=== PATIENT | female | born 1980 | race Caucasian/White ===

== ENCOUNTER → 2021-10-01 | Day surgery (SDC) | payer BC ==
[~2021-10-01] MED LIST: ARAVA10 MG PO; ARMOUR THYROID90 MG PO; DILTIAZEM ER240 M2 PO; ELIQUIS 5 MG TAB5 MG PO; HYDROCHLOROTH12.5 MG PO; PLAQUENIL200 MG PO; ZESTRIL5 MG PO
== END | disposition home or self-care (01) ==
LOC: OR 07:07
PROVIDERS: Anesthesiology
DX: K29.70 Gastritis, unspecified, without bleeding (principal); B96.81 Helicobacter pylori [H. pylori] as the cause of diseases classified elsewhere; K25.9 Gastric ulcer, unspecified as acute or chronic, without hemorrhage or perforation; D50.9 Iron deficiency anemia, unspecified; K64.8 Other hemorrhoids; K64.4 Residual hemorrhoidal skin tags; I10 Essential (primary) hypertension; D68.9 Coagulation defect, unspecified; E66.9 Obesity, unspecified; I49.9 Cardiac arrhythmia, unspecified; F17.210 Nicotine dependence, cigarettes, uncomplicated; K21.9 Gastro-esophageal reflux disease without esophagitis; M19.90 Unspecified osteoarthritis, unspecified site; E03.9 Hypothyroidism, unspecified; M32.9 Systemic lupus erythematosus, unspecified; Z68.30 Body mass index [BMI] 30.0-30.9, adult; Z88.0 Allergy status to penicillin; Z79.01 Long term (current) use of anticoagulants; Z79.899 Other long term (current) drug therapy
CPT/HCPCS: 36415; 84703; 85014; 85018; J2704; J7040